=== PATIENT | male | born 1960 | race American Indian/Alaskan Native ===

== ENCOUNTER 2016-09-18 06:47 | Day surgery (SDC) | payer OTHER ==
[~2016-09-18 06:47] MED LIST: ANCEF/STERILE WATER 2 GM/20 ML IV NR
[2016-09-18] MEDS ORDERED: ADRENALIN ONE (07:59)
--- NOTE | 2016-09-18 08:14 | Anesthesia Consultation ---
Anesthesia Consult and Med Hx Date of service: 09/18/16 - Airway Anesthetic Teeth Evaluation: Dentures ROM Head & Neck: Adequate Mental/Hyoid Distance: Adequate Mallampati Class: Class II Intubation Access Assessment: Probably Good - Pulmonary Exam CTA: Yes - Cardiac Exam Cardiac Exam: RRR - Pre-Operative Health Status ASA Pre-Surgery Classification: ASA2 Proposed Anesthetic Plan: General - Pulmonary Hx Smoking: No Hx Asthma: Yes ( CHILD ONLY) Hx Sleep Apnea: No (LEXI PRE SCREEN LOW RISK) - Cardiovascular System Hx Hypertension: No - Other Systems Hx Cancer: No
--- NOTE | 2016-09-18 08:15 | Anesthesia Day of Surgery ---
Anesthesia Day of Surgery - Day of Surgery Patient Examined: Yes Patient H&P Reviewed: Yes Patient is NPO: Yes
[2016-09-18] MEDS ORDERED: SUBLIMAZE IV ONE (08:32)
[2016-09-18] MEDS ORDERED: DILAUDID IV PRN (08:33)
[2016-09-18] MEDS ORDERED: ZOFRAN IV PRN (08:33)
[2016-09-18] MEDS ORDERED: MARCAINE-EPI 0.5%-1:200,000 INFILTRATI ONE (08:35)
[2016-09-18] MEDS ORDERED: DECADRON ONE ×2 (08:35→09:49)
[2016-09-18] MEDS ORDERED: XYLOCAINE 1% 20 mL ONE (08:46)
[2016-09-18] MEDS ORDERED: PEPCID PO NR (09:00)
[2016-09-18] MEDS ORDERED: VERSED IV NR (09:00)
[2016-09-18] MEDS ORDERED: LACTATED RINGERS 1,000 ML IV SCH (09:00)
[2016-09-18] MEDS ORDERED: XYLOCAINE MPF 2% ONE (09:48)
[2016-09-18] MEDS ORDERED: DIPRIVAN 10 MG/ML IV ONE (09:48)
[2016-09-18] MEDS ORDERED: ZOFRAN ONE (09:49)
[2016-09-18] MEDS ORDERED: ZEMURON IV ONE (09:49)
[2016-09-18] MEDS ORDERED: ADRENALIN IV ONE (10:01)
[2016-09-18] MEDS ORDERED: NACL 0.9% IR ONE (10:02)
--- NOTE | 2016-09-18 10:44 | Short Stay Summary ---
Short Stay Documentation Date of service: 09/18/16 - History H&P: obtained from office - Allergies and Medications Current Medications: Allergies Iodinated Contrast Media - IV Dye Adverse Reaction (Verified 09/18/16 09:18) Rash CAUSES ITCHING,RASH,BUMPS iodine Adverse Reaction (Verified 09/18/16 09:20) Itching SHRIMP Adverse Reaction (Uncoded 09/18/16 09:19) Itching Home Medications Medication Instructions Recorded Confirmed Last Taken Type oxyCODONE /ACETAMINOPHEN [Percocet 1 tab PO Q6HR PRN #30 tablet 09/18/16 Unknown Rx 5/325] Active Medications Cefazolin Sodium (Ancef/Sterile Water 2 Gm/20 Ml) 2 gm IV PREOP NR Stop: 09/18/16 23:59 Famotidine (Pepcid) 20 mg PO PREOP NR Stop: 09/18/16 23:00 Last Admin: 09/18/16 08:41 Dose: 20 mg Hydromorphone HCl (Dilaudid) 0.5 mg IV Q10MIN PRN PRN Reason: Pain , Severe (7-10) Stop: 09/21/16 08:34 Lactated Ringer's (Lactated Ringers) 1,000 mls @ 100 mls/hr IV DIRECT MARLI Last Admin: 09/18/16 08:41 Dose: 100 mls/hr Midazolam HCl (Versed) 2 mg IV PREOP NR Stop: 09/18/16 23:59 Last Admin: 09/18/16 08:41 Dose: 2 mg - Brief post op/procedure progress note Date of procedure: 09/18/16 Pre-op diagnosis: right shoulder adhesive capsulitis, partial rotator cuff tear , AC joint art Post-op diagnosis: other (persistent right shoulder pain, AC joint arthritis, adhesive capsulitis, partial rotator cuff tear, extensive subacromial bursitis) Procedure: right shoulder arthroscopy, subacromial decompression, distal clavicle excision , lysis of adhesions, manipulation under anesthesia, debriedment of extensive subacromial bursitis, debriedment of partial rotator cuff tear, Anesthesia: GETA Findings: marked severe loss of range of motion, copious adhesions, Surgeon: JOSE ALBERTO ORDOÑEZ Estimated blood loss: minimal Pathology: none Condition: stable - Hospital course Hospital course: no perioperative complications - Disposition Condition at discharge: Good Disposition: DC-01 TO HOME OR SELFCARE Short Stay Discharge Plan Follow up with: DR RADHA [Other] - 7 Days Prescriptions: oxyCODONE /ACETAMINOPHEN [Percocet 5/325] 1 tab PO Q6HR PRN #30 tablet PRN Reason: Pain
[2016-09-18] MEDS ORDERED: DEMEROL ONE (11:13)
[2016-09-18] MEDS ORDERED: DEMEROL IV PRN (12:00)
--- NOTE | 2016-09-18 12:50 | Post Anesthesia Evaluation ---
- Post Anesthesia Evaluation Patient Participated: Yes Airway Patent: Yes Stable Respiratory Function: Yes Nausea/Vomiting: No Temp > 96.8F: Yes Pain Manageable: Yes Adequeate Hydration: Yes Anesthesia Complications: No Block Receding Appropriately: Yes Patient on Ventilator: No
[2016-09-18 14:15] VITALS: BP 117/80
--- NOTE | 2016-09-18 16:08 | Operative Report ---
PREOPERATIVE DIAGNOSES: Persistent right shoulder pain, adhesive capsulitis, partial rotator cuff tear. POSTOPERATIVE DIAGNOSES: Persistent right shoulder pain; acromioclavicular joint arthritic changes with inferior spurs causing severe impingement upon the rotator cuff; partial thickness bursal sided rotator cuff tear involving the supraspinatus tendon, less than 10% of the width of the tendon; marked severe adhesive capsulitis with multiple adhesions with severe loss of range of motion. OPERATIVE PROCEDURE: Right shoulder arthroscopy, subacromial decompression, distal clavicle excision, lysis of adhesions, manipulation under anesthesia, debridement of extensive subacromial bursitis, debridement of partial thickness rotator cuff tear. SURGEON: Benoit Contreras M.D. SUPERINTENDENT METERS: Maira Perez, certified appliance service technician. ANESTHESIA: General plus interscalene block to the operative right upper extremity. PREOPERATIVE ANTIBIOTICS: Ancef 2 grams IV within 1 hour of skin incision. DVT PROPHYLAXIS: Open toe, thigh high compression stockings as well as thigh-high compression stockings to bilateral lower extremities. OPERATIVE COMPLICATIONS: None. OPERATIVE HISTORY AND PHYSICAL: This is a 56-year-old male who has had persistent progressively worsening right shoulder pain with severe loss of range of motion and marked limitation of his normal activities of daily living. The shoulder failed to improve despite extensive nonoperative treatment. MRI scan was performed, which was positive for acromioclavicular joint arthritic changes with inferior spurs causing impingement upon the rotator cuff as well as a partial thickness rotator cuff tear. The patient's MRI findings and diagnosis were discussed at length. After making sure the patient understood the diagnosis all his questions were answered, we then discussed treatment alternatives, surgical and nonsurgical including risks and benefits of both. After a long lengthy discussion, the patient opted to proceed with operative intervention. This will entail a right shoulder arthroscopy, subacromial decompression, distal clavicle excision, lysis of adhesions, manipulation under anesthesia and possible rotator cuff repair. The risks, which were discussed to include but not exclusive of infection, blood loss, nerve damage, loss of range of motion and persistent pain. Again, the patient understood, all of his questions were answered, he wished to proceed with operative intervention. OPERATIVE PROCEDURE: The patient was seen in the preoperative holding area at which point informed consent was reviewed and appropriate right upper extremity was identified and then marked. Anesthesia then performed with an interscalene block at the right upper extremity. After confirmation of adequate analgesia on the right upper extremity, the patient was then brought back to the operating room and placed supine on the standard operating room table, at which point general anesthesia was administered and endotracheal tube was inserted. After confirmation of proper general anesthesia and checking appropriate placement of endotracheal tube, we then made sure that all bony prominences were well padded, that there were no wrinkles in the compression stockings on bilateral lower extremities and SCD pumps were applied to bilateral lower extremities. A pillow was placed beneath the posterior aspect of bilateral thighs, placed in slight flexion of the hips and knees to make sure the popliteal fossa was free and clear and the heels were well padded. The patient was then sat in the beach chair position. Using the beach chair position, which was already in place, his head was secured in nice neutral position. The well left arm was secured in a neutral position on the patient's side with the aid of the well arm cardoza. The left upper extremity once confirmed to be appropriately positioned, we then examined the right upper extremity. The patient was seen to have severe loss of range of motion with forward flexion only to 90, abduction to 70, external rotation of 40 degrees and internal rotation of 30 degrees. Following examination under anesthesia, the right upper extremity was then prepped and draped in the usual sterile fashion. After prepping and draping, a timeout was called and appropriate right upper extremity was identified which again had been marked in the preop holding area. I began the procedure by first making a standard posterior portal with #15 blade. Once the portal was established, the blunt trocar was inserted to intra-articular aspect of the glenohumeral joint. This went without difficulty or damage to articular cartilage. Once in place, we established anterior portal by first inserting an 18 gauge spinal needle between the subscap and biceps tendon under direct arthroscopic visualization. Once confirmed to be in appropriate position, a 15 blade was then used to establish the anterior portal. Once the portal was established, the blunt trocar was inserted via the portal site. Following the arthroscopic probe, we began our diagnostic arthroscopy in the anterior aspect of the shoulder where the patient had marked adhesions located diffusely at the anterior aspect of the joint capsule. The subscapularis was tended to be intact and stable when probed with normal middle glenohumeral ligament. The biceps tendon was seemed to be intact. Next, the shoulder in its normal relation. The anterior, superior and posterior labrum seemed to be intact and stable when probed and there was normal articular cartilage of the glenohumeral joint. There was a normal bare area without Hill-Sachs lesion. Inspection of the axillary recess showed to be no loose bodies present. Inspection of the rotator cuff on the articular side showed it to be intact and stable when probed. The adhesions were debrided using 4.0 meniscal shaver and hemostasis was achieved with Arthrocare ablation wand. There was marked loss of internal and external rotation. A portion of the rotator cuff interval was slightly released and once this was completed, the arthroscopic pump was turned off, making sure there was good hemostasis. Once this was confirmed, the extraneous fluid was suctioned from the glenohumeral joint using the arthroscopic cannula. Following this, all the arthroscopic instrumentation was removed from the glenohumeral joint and then placed in subacromial space. Once in the subacromial space, we saw there was severe extensive subacromial bursitis. A third incision made in the lateral aspect of the shoulder, allowing the distal clavicle well away from axillary nerve. We debrided the extensive subacromial bursitis using the 4.0 meniscal shaver. Hemostasis was achieved with the Arthrocare ablation wand. A Sidhu was used. Arthroscopic instrumentation was removed and then a gentle manipulation was performed under anesthesia. Once completed, we had forward flexion of 180, abduction 180, external rotation of 60 degrees and internal rotation of 60 degrees. After regaining the patient's entire full range of motion, the arthroscopic camera was then placed back in the subacromial space and while viewing the subacromial space, the arm was again taken through full range of motion. We saw there was severe impingement of the rotator cuff on the undersurface of the acromion and the distal clavicle. The soft tissue was removed from the undersurface of the acromion by first making a third incision in the lateral aspect of the shoulder and allowing the distal clavicle well away from axillary nerve and once incision was made after removing the soft tissue from the undersurface of the acromion using Arthrocare Ablation wand. Then, using the 4.0 hooded barrel bur, we carried out a subacromial decompression in standard fashion from inferior and superior, posterior and anterior to make sure not leave any residual anterior hook. The coracoacromial ligament was also seen to be markedly pathologic and thickening contributing to impingement and this was debrided, making careful attention to cauterize the acromial branch of the thoracoacromial artery. We then turned our attention to the distal clavicle, which again was also seemed to be arthritic and using the 4.0 hooded barrel bur, we carried out a distal clavicle excision to a depth of approximately 6 mm using the 4.0 hooded bur. Following this, the arm was again placed through a full range of motion under direct arthroscopic visualization. We saw there was no further impingement of the rotator cuff upon undersurface of the acromion or the distal clavicle. We turned our attention to the bursal side rotator cuff, which showed a small partial thickness tear involving the supraspinatus tendon, less than 10% of the width of the tendon. Once this was visualized and completed, the partial rotator cuff tear was debrided using 4.0 meniscal shaver. Following this, the arthroscopic pump was turned off, making sure there was good hemostasis. Once this was confirmed, the extraneous fluid was suctioned from subacromial space using arthroscopic cannula. Following this, all the arthroscopic instrumentation was removed. The 3 portal sites were closed with 3-0 nylon in simple fashion. Adaptic, 4 x 4s, ABD, paper tape, small abduction sling and the Cryo/Cuff blanket was applied to the right shoulder. Following this, the patient was sat down from the beach chair in the supine position, was awakened from general anesthesia without complications and taken to the recovery room in stable condition. Standard postoperative orders were written. Thank you very much. JOB# [id number] NORIS/DAMIAN
== END 2016-09-18 13:30 | disposition home or self-care (01) ==
LOC: OR 06:47
PROVIDERS: ATTEND Orthopaedic Surgery
DX: S46.011A Strain of muscle(s) and tendon(s) of the rotator cuff of right shoulder, initial encounter (principal); M75.01 Adhesive capsulitis of right shoulder; J45.998 Other asthma; Z91.041 Radiographic dye allergy status; Z91.013 Allergy to seafood; Z88.8 Allergy status to other drugs, medicaments and biological substances; Z87.19 Personal history of other diseases of the digestive system; Z87.442 Personal history of urinary calculi; Z87.891 Personal history of nicotine dependence; Z98.890 Other specified postprocedural states; X58.XXXA Exposure to other specified factors, initial encounter
CPT/HCPCS: 29823; A4217; J0171; J0690; J1100; J2175; J2250; J2405; J2704; J3010; J7120; L1830

== ENCOUNTER 2016-09-23 14:43 | Emergency (ER) | payer OTHER ==
[2016-09-23 15:32] LABS: Basophils % (Auto) 0.3 % (0.0-1.8); Eosinophils % (Auto) 1.4 % (0.0-4.3); Hematocrit 41.6 % (35.5-45.6); Hemoglobin 13.7 gm/dl (11.8-15.2); Mean Corpuscular HGB Conc 33 % (32-34); Mean Corpuscular Hemoglobin 28 pg (28-32); Mean Corpuscular Volume 86 fl (84-94); Platelet Count 245 K/mm3 (140-440); Red Blood Count 4.82 M/mm3 (3.65-5.03); Red Cell Distribution Width 12.6 % (13.2-15.2); White Blood Count 7.2 K/mm3 (4.5-11.0)
[2016-09-23 15:49] LABS: Alanine Aminotransferase 14 units/L (7-56); Albumin 4.5 g/dL (3.9-5); Albumin/Globulin Ratio 1.4 %; Alkaline Phosphatase 72 units/L (35-129); Anion Gap 16 mmol/L; BUN/Creatinine Ratio 16.66; Blood Urea Nitrogen 15 mg/dL (9-20); Calcium 9.8 mg/dL (8.4-10.2); Carbon Dioxide 29 mmol/L (22-30); Chloride 99.3 mmol/L (98-107); Glucose 103 mg/dL (75-100); Potassium 4.6 mmol/L (3.6-5.0); Sodium 140 mmol/L (137-145); Total Protein 7.8 g/dL (6.3-8.2)
--- NOTE | 2016-09-23 18:51 | Cat Scan Report ---
FINAL REPORT EXAM: CT HEAD/BRAIN WO CON HISTORY: headaache TECHNIQUE: CT of the head was performed. No intravenous contrast was administered. PRIORS: None. FINDINGS: There is no evidence of intracranial hemorrhage. There is no edema, mass effect or midline shift. There are no abnormal extra-axial fluid collections. The ventricles are appropriate for brain volume. There is no skull fracture seen. The visualized aspects of the sinuses are clear. IMPRESSION: There is no acute intracranial abnormality identified.
[2016-09-23 21:14] VITALS: BP 123/82
--- NOTE | 2016-09-24 07:48 | Emergency Department Report ---
ED Headache HPI - General Chief Complaint: Headache Stated Complaint: S/P SURGERY/BACK PAIN/HEAD PAIN/ITCHY EYES Time Seen by Provider: 09/24/16 07:44 - History of Present Illness Initial Comments: 56-year-old male here with headache and constipation. Patient states that he had surgery on Sunday. He had not had a bowel movement since that time. He was taking hydrocodone. He felt bloated and very uncomfortable and the abdomen and had a headache. He just had a bowel movement prior to our discussion and is starting to feel better. His headache is slightly improved. He describes the headache is diffuse all over. No photophobia no fever chills. Timing/Duration: other (2 days) Quality: moderate Head Injury Location: global Recent Head Trauma: no recent headache/trauma Modifying Factors: worse with: cold therapy, exposure to light, immobilization, medication, movement, rest Associated Symptoms: denies: denies symptoms, confusion, fatigue, facial pain, fever/chills, flushing, loss of consciousness, nausea/vomiting, nasal congestion , nasal drainage, numbness in legs/feet, rash, seizures, sinus infection, stiff neck, vision changes, weakness, other Allergies/Adverse Reactions: Allergies Iodinated Contrast Media - IV Dye Adverse Reaction (Verified 09/18/16 09:18) Rash CAUSES ITCHING,RASH,BUMPS iodine Adverse Reaction (Verified 09/18/16 09:20) Itching SHRIMP Adverse Reaction (Uncoded 09/18/16 09:19) Itching Home Medications: Ambulatory Orders oxyCODONE /ACETAMINOPHEN [Percocet 5/325] 1 tab PO Q6HR PRN #30 tablet 09/18/16 Polyethylene Glycol 3350 [Miralax 3350] 17 gm PO BID #10 packet 09/24/16 ED Review of Systems ROS: Stated complaint: S/P SURGERY/BACK PAIN/HEAD PAIN/ITCHY EYES Other details as noted in HPI Comment: All other systems reviewed and negative Constitutional: denies: chills, fever Eyes: denies: eye pain, eye discharge, vision change ENT: denies: ear pain, throat pain Respiratory: denies: cough, shortness of breath, wheezing Cardiovascular: denies: chest pain, palpitations Endocrine: no symptoms reported Gastrointestinal: denies: abdominal pain, nausea, diarrhea Genitourinary: denies: urgency, dysuria Musculoskeletal: other (recent surgery ). denies: back pain, joint swelling, arthralgia Skin: denies: rash, lesions Neurological: denies: headache, weakness, paresthesias Psychiatric: denies: anxiety, depression Hematological/Lymphatic: denies: easy bleeding, easy bruising ED Past Medical Hx - Past Medical History Hx Hypertension: No Hx Asthma: Yes ( CHILD ONLY) Hx Tuberculosis: Yes (POSITIVE SKIN TEST , NEG CXR) - Surgical History Additional Surgical History: bilateral shoulder - Family History Family history: no significant - Social History Smoking Status: Never Smoker Substance Use Type: None - Medications Home Medications: Home Medications Medication Instructions Recorded Confirmed Last Taken Type oxyCODONE /ACETAMINOPHEN [Percocet 1 tab PO Q6HR PRN #30 tablet 09/18/16 Unknown Rx 5/325] Polyethylene Glycol 3350 [Miralax 17 gm PO BID #10 packet 09/24/16 Unknown Rx 3350] ED Physical Exam - General Limitations: No Limitations General appearance: alert, in no apparent distress - Head Head exam: Present: atraumatic, normocephalic - Eye Eye exam: Present: normal appearance, PERRL, EOMI. Absent: scleral icterus, conjunctival injection - ENT ENT exam: Present: mucous membranes moist - Neck Neck exam: Present: normal inspection - Respiratory Respiratory exam: Present: normal lung sounds bilaterally. Absent: respiratory distress - Cardiovascular Cardiovascular Exam: Present: regular rate, normal rhythm. Absent: systolic murmur, diastolic murmur, rubs, gallop - GI/Abdominal GI/Abdominal exam: Present: soft, normal bowel sounds. Absent: distended, tenderness, guarding, rebound - Rectal Rectal exam: Present: deferred - Extremities Exam Extremities exam: Present: normal inspection, other (right arm in sling. Dressing intact no obvious redness or erythema.) - Back Exam Back exam: Present: normal inspection - Neurological Exam Neurological exam: Present: alert, oriented X3 - Psychiatric Psychiatric exam: Present: normal affect, normal mood - Skin Skin exam: Present: warm, dry, intact, normal color. Absent: rash ED Course Vital Signs 09/23/16 09/23/16 15:11 21:13 Temperature 98.2 F 98.6 F Pulse Rate 67 59 L Respiratory 18 18 Rate Blood Pressure 114/75 123/82 O2 Sat by Pulse 100 99 Oximetry ED Medical Decision Making - Lab Data Result diagrams: 09/23/16 15:20 09/23/16 15:20 Laboratory Results - last 24 hr 09/23/16 09/23/16 15:20 15:20 WBC 7.2 RBC 4.82 Hgb 13.7 Hct 41.6 MCV 86 MCH 28 MCHC 33 RDW 12.6 L Plt Count 245 Lymph % (Auto) 24.6 [place] % (Auto) 8.3 H Eos % (Auto) 1.4 Baso % (Auto) 0.3 Lymph # 1.8 [place] # 0.6 Eos # 0.1 Baso # 0.0 Seg Neutrophils % 65.4 Seg Neutrophils # 4.7 Sodium 140 Potassium 4.6 Chloride 99.3 Carbon Dioxide 29 Anion Gap 16 BUN 15 Creatinine 0.9 Estimated GFR > 60 BUN/Creatinine Ratio 16.66 Glucose 103 H Calcium 9.8 Total Bilirubin 0.50 AST 13 ALT 14 Alkaline Phosphatase 72 Total Protein 7.8 Albumin 4.5 Albumin/Globulin Ratio 1.4 - Medical Decision Making 56-year-old male here with complaint of headache and abdominal pain. Patient states he's been constipated since Sunday. He usually has a bowel movement every day. He did have a bowel movement in the waiting room. I advised him to stop taking his oxycodone as he does not need it further he is not having severe pain in the shoulder. He agrees. His headache is improved. Plan discharge patient home with MiraLAX treatment. Portions of this chart were dictated with dictation software. There may be dictation errors contained within this note. Critical care attestation.: If time is entered above; I have spent that time in minutes in the direct care of this critically ill patient, excluding procedure time. ED Disposition Clinical Impression: Constipation, Headache Disposition: DC-01 TO HOME OR SELFCARE Is pt being admited?: Yes Condition: Stable Instructions: Acute Headache (ED), Constipation (ED) Additional Instructions: Please do not take any more oxycodone. Prescriptions: Polyethylene Glycol 3350 [Miralax 3350] 17 gm PO BID #10 packet Referrals: PRIMARY CARE, [Primary Care Provider] - 3-5 Days
== END 2016-09-24 08:15 | disposition home or self-care (01) ==
LOC: ED 14:43
DX: R51 Headache (principal); K59.00 Constipation, unspecified; I10 Essential (primary) hypertension; J45.909 Unspecified asthma, uncomplicated; Z91.013 Allergy to seafood; Z91.041 Radiographic dye allergy status
CPT/HCPCS: 36415; 70450; 80053; 85025